=== PATIENT | male | born 1945 | race Two or more races ===

== ENCOUNTER 2022-05-02 17:55 | Inpatient (IN) | payer OTHER, MEDICAID ==
[~2022-05-02] VITALS: Ht 157.5 cm; Wt 61.6 kg
[2022-05-02 19:23] LABS: Basophils # (auto) 0 10 ^3/uL (0-0.2); Eosinophils # (auto) 0 10 ^3/uL (0-0.8); Hematocrit 54.4 % (41.0-53.0); Hemoglobin 17.8 g/dL (13.5-17.5); Monocytes # (auto) 1.2 10 ^3/uL (0-1.3); Red Cell Distribution Width 13.3 % (11.8-14.3)
[2022-05-02 19:25] LABS: Basophils % (auto) 0.2 % (0.0-2.0); Lymphocytes # (auto) 2.2 10 ^3/uL (0.4-5.4); Lymphocytes % (auto) 15.3 % (10.0-50.0); Mean Corpuscular Hemoglobin 30.8 pg (28.0-32.0); Mean Corpuscular Hgb Conc. 32.8 g/dL (32.0-36.0); Mean Corpuscular Volume 93.9 fL (80.0-100.0); Monocytes % (auto) 8.2 % (0.0-12.0); Neutrophils % (auto) 76.3 % (37.0-80.0); Nucleated Red Blood Cells % 0.1 %; White Blood Cell 14.5 10^3/uL (4.4-10.8)
[2022-05-02 19:36] LABS: Albumin 4.5 g/dL (3.4-5.0); BUN/Creatinine Ratio 15.5; Calcium 9.7 mg/dL (8.5-10.1); Magnesium 2.1 mg/dL (1.6-2.6); Potassium 3.4 mmol/L (3.5-5.1)
[2022-05-02 19:38] LABS: Bilirubin, Total 1.5 mg/dL (0.2-1.0); Total Protein 8.3 g/dL (6.4-8.2)
[2022-05-02 19:45] LABS: INR 1.17 (0.9-1.15); Partial Thromboplastin Time 26.7 sec (23.6-33.0)
[2022-05-02] MEDS ORDERED: fentaNYL CITRATE 100 MCG/2 ML VL IV ONE ×2 (20:00→22:15)
[2022-05-02] MEDS ORDERED: cefTRIAXone 1GM/50ML D5W 50 ML IV ONE (21:45)
[2022-05-02] MEDS ORDERED: ONDANSETRON HCL 4 MG/2 ML VIAL IV ONE (22:00)
[2022-05-03] MEDS ORDERED: fentaNYL CITRATE 100 MCG/2 ML VL IV ONE ×3 (01:30→08:00)
[2022-05-03 04:51] LABS: Urine Bacteria NONE SEEN /hpf (None Seen); Urine Blood 1+ /uL (Negative); Urine Hyaline Cast MANY /lpf (0 - 2); Urine Mucus FEW (None Seen); Urine Specific Gravity 1.035 (1.001-1.035); Urine WBC 2 /hpf (0 - 3)
[2022-05-03] MEDS ORDERED: MORPHINE SULFATE INJ 2 MG/ml SYRG IV ONE (15:15)
[2022-05-03 17:48] LABS: Basophils # (auto) 0 10 ^3/uL (0-0.2); Eosinophils # (auto) 0 10 ^3/uL (0-0.8); Mean Corpuscular Hemoglobin 31.1 pg (28.0-32.0); Mean Corpuscular Hgb Conc. 33.3 g/dL (32.0-36.0); White Blood Cell 8.4 10^3/uL (4.4-10.8)
[2022-05-03 17:51] LABS: Basophils % (auto) 0.2 % (0.0-2.0); Hematocrit 54.1 % (41.0-53.0); Lymphocytes # (auto) 0.6 10 ^3/uL (0.4-5.4); Lymphocytes % (auto) 7.6 % (10.0-50.0); Mean Corpuscular Volume 93.2 fL (80.0-100.0); Monocytes # (auto) 0.8 10 ^3/uL (0-1.3); Monocytes % (auto) 9.1 % (0.0-12.0); Neutrophils % (auto) 83.1 % (37.0-80.0); Red Cell Distribution Width 13.5 % (11.8-14.3)
[2022-05-03 18:15] LABS: Albumin 3.3 g/dL (3.4-5.0); Calcium 8.8 mg/dL (8.5-10.1); Potassium 4.5 mmol/L (3.5-5.1)
[2022-05-03 18:17] LABS: INR 1.34 (0.9-1.15)
[2022-05-03 18:19] LABS: BUN/Creatinine Ratio 32.1; Bilirubin, Total 1.3 mg/dL (0.2-1.0); Total Protein 7.3 g/dL (6.4-8.2)
[2022-05-03] MEDS ORDERED: cefTRIAXone 1GM/50ML D5W 50 ML IV ONE (18:30)
[2022-05-03] MEDS ORDERED: PANTOPRAZOLE 40 MG/10 ML VIAL INJ IV ONE ×2 (18:45→23:45)
[2022-05-03] MEDS ORDERED: SODIUM CHLORIDE 0.9% 1,000 ML IV ONE (18:45)
[2022-05-03 19:06] LABS: Cholesterol 90 mg/dL (< 200); HDL Cholesterol 31 mg/dL (40-59); LDL Cholesterol 58 mg/dL (< 100); Triglycerides 57 mg/dL (< 150)
[2022-05-03] MEDS ORDERED: GLIM4TAB42 PO (23:25)
[2022-05-03] MEDS ORDERED: ENAL2.5T11 PO (23:26)
[2022-05-03] MEDS ORDERED: SIMV-8 PO (23:26)
[2022-05-04] MEDS: metroNIDAZOLE 500MG/100ML 100 ML IV SCH ×4 (00:12→21:52)
[2022-05-04 05:00] VITALS: BP 106/68
[2022-05-04 06:44] LABS: Basophils # (auto) 0 10 ^3/uL (0-0.2); Basophils % (auto) 0.1 % (0.0-2.0); Eosinophils # (auto) 0 10 ^3/uL (0-0.8); Hemoglobin 17.9 g/dL (13.5-17.5)
[2022-05-04 06:48] LABS: Hematocrit 53.3 % (41.0-53.0); Lymphocytes # (auto) 0.5 10 ^3/uL (0.4-5.4); Lymphocytes % (auto) 4.8 % (10.0-50.0); Mean Corpuscular Hemoglobin 31.4 pg (28.0-32.0); Mean Corpuscular Hgb Conc. 33.5 g/dL (32.0-36.0); Mean Corpuscular Volume 93.5 fL (80.0-100.0); Monocytes # (auto) 1.1 10 ^3/uL (0-1.3); Neutrophils # (auto) 8.9 10 ^3/uL (1.6-8.6); Neutrophils % (auto) 85.1 % (37.0-80.0); Nucleated Red Blood Cells % 0.1 %; Red Cell Distribution Width 13.5 % (11.8-14.3); White Blood Cell 10.5 10^3/uL (4.4-10.8)
[2022-05-04 07:07] LABS: Calcium 8.8 mg/dL (8.5-10.1); Potassium 4.6 mmol/L (3.5-5.1)
[2022-05-04 07:12] LABS: Bilirubin, Total 0.8 mg/dL (0.2-1.0)
[2022-05-04 08:00] VITALS: BP 129/77
[2022-05-04] MEDS: cefTRIAXone 1GM/50ML D5W 50 ML IV SCH (08:57)
[2022-05-04 09:00] VITALS: BP 129/77
[2022-05-04] MEDS ORDERED: PANTOPRAZOLE 40 MG/10 ML VIAL INJ IV SCH (10:00)
[2022-05-04] MEDS ORDERED: MORPHINE SULFATE INJ 2 MG/ml SYRG IV PRN (10:45)
[2022-05-04] MEDS ORDERED: ONDANSETRON HCL 4 MG/2 ML VIAL IV PRN (10:45)
[2022-05-04] MEDS: SODIUM CHLORIDE 0.9% 1,000 ML IV SCH ×2 (12:47→19:25)
[2022-05-04 13:00] VITALS: BP 116/72
[2022-05-04 17:00] VITALS: BP 119/69
[2022-05-04] MEDS ORDERED: GLIM4TAB42 PO (18:46)
[2022-05-04] MEDS ORDERED: GLIM2TAB33 PO (18:48)
[2022-05-04] MEDS ORDERED: ALBU0.084 IN (19:01)
[2022-05-04] MEDS ORDERED: BECL80AE11 IN (19:04)
[2022-05-04] MEDS: SUCRALFATE 1 GM/10 ML ORAL SUSP PO SCH ×2 (19:25→21:52)
[2022-05-04] MEDS: ENALAPRIL MALEATE 2.5 MG TAB PO SCH (20:48)
[2022-05-04] MEDS: PANTOPRAZOLE 40 MG/10 ML VIAL INJ IV SCH (21:52)
[2022-05-04] MEDS: ATORVASTATIN 20 MG TAB PO SCH (21:53)
[2022-05-04 22:07] VITALS: BP 135/69
[2022-05-05] VITALS (7 sets, daily range): BP systolic 103–118; BP diastolic 45–64
[2022-05-05] MEDS: SODIUM CHLORIDE 0.9% 1,000 ML IV SCH ×3 (02:45→18:54)
[2022-05-05] MEDS ORDERED: ALBUTEROL SULF 2.5 MG/0.5ML(0.5%) NEB SOLN NEB PRN (06:15)
[2022-05-05] MEDS ORDERED: IPRATROPIUM BROM 0.5 MG/2.5ML INH SOL NEB PRN (06:15)
[2022-05-05] MEDS: metroNIDAZOLE 500MG/100ML 100 ML IV SCH ×3 (06:22→21:59)
[2022-05-05] MEDS: SUCRALFATE 1 GM/10 ML ORAL SUSP PO SCH ×4 (06:23→21:59)
[2022-05-05] MEDS: cefTRIAXone 1GM/50ML D5W 50 ML IV SCH (09:05)
[2022-05-05] MEDS: PANTOPRAZOLE 40 MG/10 ML VIAL INJ IV SCH ×2 (10:28→21:59)
[2022-05-05] MEDS: ENALAPRIL MALEATE 2.5 MG TAB PO SCH (10:29)
[2022-05-05] MEDS: ATORVASTATIN 20 MG TAB PO SCH (21:59)
[2022-05-06] VITALS (7 sets, daily range): BP systolic 89–126; BP diastolic 44–62
[2022-05-06] MEDS: SODIUM CHLORIDE 0.9% 1,000 ML IV SCH ×3 (02:45→21:35)
[2022-05-06] MEDS: SUCRALFATE 1 GM/10 ML ORAL SUSP PO SCH ×4 (03:05→21:36)
[2022-05-06] MEDS: metroNIDAZOLE 500MG/100ML 100 ML IV SCH ×3 (05:56→21:35)
[2022-05-06 06:13] LABS: Basophils # (auto) 0 10 ^3/uL (0-0.2); Basophils % (auto) 0.2 % (0.0-2.0); Eosinophils # (auto) 0 10 ^3/uL (0-0.8); Eosinophils % (auto) 0.4 % (0.0-7.0); Hematocrit 39.7 % (41.0-53.0); Hemoglobin 13.2 g/dL (13.5-17.5); Lymphocytes # (auto) 0.8 10 ^3/uL (0.4-5.4); Mean Corpuscular Hemoglobin 31.2 pg (28.0-32.0); Mean Corpuscular Hgb Conc. 33.2 g/dL (32.0-36.0); Mean Corpuscular Volume 93.8 fL (80.0-100.0); Monocytes # (auto) 1.2 10 ^3/uL (0-1.3); Monocytes % (auto) 16.2 % (0.0-12.0); Neutrophils # (auto) 5.5 10 ^3/uL (1.6-8.6); Neutrophils % (auto) 73.2 % (37.0-80.0); Nucleated Red Blood Cells % 0.1 %; Red Blood Cells 4.23 10^6/uL (4.5-5.90); Red Cell Distribution Width 13.2 % (11.8-14.3); White Blood Cell 7.5 10^3/uL (4.4-10.8)
[2022-05-06 06:21] LABS: INR 1.13 (0.9-1.15); Partial Thromboplastin Time 35.4 sec (24.6-33.4)
[2022-05-06 06:30] LABS: Albumin 1.9 g/dL (3.4-5.0); Calcium 7.6 mg/dL (8.5-10.1); Potassium 3.6 mmol/L (3.5-5.1)
[2022-05-06 06:33] LABS: BUN/Creatinine Ratio 36.2
[2022-05-06 06:38] LABS: Bilirubin, Total 0.5 mg/dL (0.2-1.0); Total Protein 4.6 g/dL (6.4-8.2)
[2022-05-06] MEDS: cefTRIAXone 1GM/50ML D5W 50 ML IV SCH (09:14)
[2022-05-06] MEDS: ENALAPRIL MALEATE 2.5 MG TAB PO SCH (10:00)
[2022-05-06] MEDS: PANTOPRAZOLE 40 MG/10 ML VIAL INJ IV SCH (12:10)
[2022-05-06] MEDS ORDERED: LIDOCAINE VISCOUS 2% 15ML UD ONE (13:10)
[2022-05-06] MEDS ORDERED: SIMETHICONE 40 MG/0.6 ML ORAL DROP ONE (13:10)
[2022-05-06] MEDS ORDERED: MIDAZOLAM HCL 2MG/2ML 2ml VIAL (1mg/ml) ONE (13:28)
[2022-05-06] MEDS ORDERED: fentaNYL CITRATE 100 MCG/2 ML VL ONE (13:28)
[2022-05-06] MEDS ORDERED: DexAMETHasone SOD PHOS 10MG/1ML VIAL INJ ONE (13:42)
[2022-05-06] MEDS ORDERED: PROPOFOL 10 MG/ML 20 ML IV ONE (13:42)
[2022-05-06] MEDS: ATORVASTATIN 20 MG TAB PO SCH (21:36)
[2022-05-06] MEDS: PANTOPRAZOLE 40 MG TAB PO SCH (21:36)
[2022-05-07 05:00] VITALS: BP 119/58
[2022-05-07] MEDS: SODIUM CHLORIDE 0.9% 1,000 ML IV SCH ×3 (05:30→22:53)
[2022-05-07] MEDS: metroNIDAZOLE 500MG/100ML 100 ML IV SCH ×3 (05:37→22:53)
[2022-05-07] MEDS: SUCRALFATE 1 GM/10 ML ORAL SUSP PO SCH ×4 (06:00→22:53)
[2022-05-07 09:00] VITALS: BP 109/52
[2022-05-07] MEDS: PANTOPRAZOLE 40 MG TAB PO SCH ×2 (09:22→22:54)
[2022-05-07] MEDS: cefTRIAXone 1GM/50ML D5W 50 ML IV SCH (09:22)
[2022-05-07] MEDS: ENALAPRIL MALEATE 2.5 MG TAB PO SCH (09:25)
[2022-05-07 12:57] VITALS: BP 131/57
[2022-05-07 16:40] VITALS: BP 120/57
[2022-05-07 22:00] VITALS: BP 139/63
[2022-05-07] MEDS: ATORVASTATIN 20 MG TAB PO SCH (22:53)
[2022-05-08] MEDS: SODIUM CHLORIDE 0.9% 1,000 ML IV SCH ×2 (04:38→10:45)
[2022-05-08 05:00] VITALS: BP 116/60
[2022-05-08] MEDS: metroNIDAZOLE 500MG/100ML 100 ML IV SCH ×2 (06:42→13:37)
[2022-05-08] MEDS: SUCRALFATE 1 GM/10 ML ORAL SUSP PO SCH ×2 (06:42→13:38)
[2022-05-08 08:54] VITALS: BP 142/70
[2022-05-08 09:09] VITALS: BP 116/60
[2022-05-08] MEDS ORDERED: SUCR1TAB22 PO (09:16)
[2022-05-08] MEDS ORDERED: LEVO500T31 PO (09:16)
[2022-05-08] MEDS ORDERED: PANT40T PO (09:16)
[2022-05-08] MEDS ORDERED: METR500T PO (09:16)
[2022-05-08] MEDS: cefTRIAXone 1GM/50ML D5W 50 ML IV SCH (09:24)
[2022-05-08] MEDS: PANTOPRAZOLE 40 MG TAB PO SCH (09:25)
[2022-05-08] MEDS: ENALAPRIL MALEATE 2.5 MG TAB PO SCH (09:25)
[2022-05-08 12:36] VITALS: BP 150/73
[2022-05-08 14:06] VITALS: BP 142/70
== END 2022-05-08 15:00 | disposition home or self-care (01) | DRG 446 ==
LOC: ER 17:55 → OVERFLOW 05-03 18:19 → CENTRAL 05-03 23:05
PROVIDERS: ADMIT Registered Nurse; ATTEND Family Medicine
PROC: 0DB68ZX Excision of Stomach, Via Natural or Artificial Opening Endoscopic, Diagnostic (ICD-10-PCS; principal; 2022-05-06 13:40)
DX: K80.00 Calculus of gallbladder with acute cholecystitis without obstruction (principal); E78.5 Hyperlipidemia, unspecified; D75.1 Secondary polycythemia; I12.9 Hypertensive chronic kidney disease with stage 1 through stage 4 chronic kidney disease, or unspecified chronic kidney disease; K42.9 Umbilical hernia without obstruction or gangrene; K44.9 Diaphragmatic hernia without obstruction or gangrene; K57.30 Diverticulosis of large intestine without perforation or abscess without bleeding; Z20.822 Contact with and (suspected) exposure to COVID-19; K59.00 Constipation, unspecified; N18.30 Chronic kidney disease, stage 3 unspecified; N40.0 Benign prostatic hyperplasia without lower urinary tract symptoms; E86.0 Dehydration; E78.00 Pure hypercholesterolemia, unspecified; K20.90 Esophagitis, unspecified without bleeding; K25.9 Gastric ulcer, unspecified as acute or chronic, without hemorrhage or perforation; K26.9 Duodenal ulcer, unspecified as acute or chronic, without hemorrhage or perforation; K29.70 Gastritis, unspecified, without bleeding; K29.80 Duodenitis without bleeding; F17.210 Nicotine dependence, cigarettes, uncomplicated
CPT/HCPCS: 36415; 71045; 74176; 76705; 78226; 80053; 80061; 81001; 83036; 83735; 83880; 84443; 84484; 85025; 85610; 85730; 86850; 86900; 86901; 87040; 87086; 93005; 93306; 94640; 96365; 96375; 96376; C9113; G0378; J0696; J1100; J2250; J2405; J2704; J3490

== ENCOUNTER 2023-06-07 07:13 | Emergency (ER) | payer OTHER, MEDICAID ==
[~2023-06-07] VITALS: Ht 157.5 cm; Wt 61.1 kg
[~2023-06-07 07:13] MED LIST: ALBU0.084 IN; BECL80AE11 IN; ENAL2.5T11 PO; GLIM2TAB33 PO; LEVO500T31 PO; METR500T PO; PANT40T PO; SIMV20TA20 PO; SUCR1TAB22 PO
[2023-06-07 07:24] VITALS: BP 131/68; PULSE 70; RESP 18
[2023-06-07 07:58] VITALS: O2SAT 95
[2023-06-07] MEDS ORDERED: cefTRIAXone SOD 1,000 MG VL IM ONE (08:00)
[2023-06-07] MEDS ORDERED: PROM1SOL4 PO (08:45)
[2023-06-07] MEDS ORDERED: AZIT-81 PO (08:45)
== END 2023-06-07 08:56 | disposition home or self-care (01) ==
LOC: ER 07:13
DX: J03.90 Acute tonsillitis, unspecified (principal); J06.9 Acute upper respiratory infection, unspecified; E11.9 Type 2 diabetes mellitus without complications; Z79.899 Other long term (current) drug therapy
CPT/HCPCS: 71046; 96372; 99283; J0696

== ENCOUNTER 2023-06-25 07:41 | Emergency (ER) | payer OTHER, MEDICAID ==
[~2023-06-25] VITALS: Ht 157.5 cm; Wt 61.3 kg
[~2023-06-25 07:41] MED LIST changes: +AZIT-81 PO; +PROM1SOL4 PO
[2023-06-25 07:48] VITALS: BP 126/67; PULSE 66; RESP 18; TEMP 98.5; O2SAT 96
[2023-06-25] MEDS ORDERED: DICL1GEL59 EX (08:25)
[2023-06-25] MEDS ORDERED: GABA-1308 PO (08:25)
[2023-06-25] MEDS ORDERED: LIDOCAINE 5% TOPICAL PATCH TOP ONE (08:30)
== END 2023-06-25 08:49 | disposition home or self-care (01) ==
LOC: ER 07:41
DX: M79.652 Pain in left thigh (principal); E11.9 Type 2 diabetes mellitus without complications; Z79.899 Other long term (current) drug therapy